=== PATIENT | female | born 1995 ===

== ENCOUNTER 2018-12-18 13:29 | Emergency (ER) | payer BC ==
[~2018-12-18] VITALS: Ht 165.1 cm; Wt 63.5 kg
[2018-12-18] MEDS ORDERED: PRISTIQ ER100 MG (13:41)
[2018-12-18] MEDS ORDERED: SINGULAIR 10MG10 MG (13:41)
[2018-12-18] MEDS ORDERED: ESKALITH300 MG (13:42)
[2018-12-18] MEDS ORDERED: VISTARIL50 MG (13:42)
[2018-12-18] MEDS ORDERED: CLOMIPRAMINE HC25 MG (13:42)
[2018-12-18] MEDS ORDERED: CLONAZEPAM1 M1 (13:43)
== END 2018-12-18 16:10 | disposition home or self-care (01) ==
LOC: ER 13:29
DX: R05 Cough (principal)